=== PATIENT | male | born 1990 | race Caucasian/White ===

== ENCOUNTER 2017-04-23 01:01 | Inpatient (IN) ==
[2017-04-23] MEDS ORDERED: SODIUM CHLORIDE 1,000 ML IV STA ×2 (01:06→04:11)
[2017-04-23] MEDS ORDERED: DUONEB NEB STA (01:07)
[2017-04-23] MEDS ORDERED: XOPENEX 1.25 MG NEB STA (01:07)
[2017-04-23] MEDS ORDERED: SOLU-MEDROL 125 MG IVP STA (01:07)
[2017-04-23] MEDS ORDERED: ROCEPHIN 1 GM in SODIUM CHLORIDE 50 ML IV STA (01:08)
[2017-04-23] MEDS ORDERED: TORADOL IVP STA (01:08)
[2017-04-23 01:38] VITALS: BMI 35.6
[2017-04-23] MEDS ORDERED: ROCEPHIN ONE ×2 (02:04→20:20)
--- NOTE | 2017-04-23 03:41 | CT ---
EXAM: CT pulmonary angiogram. HISTORY: Cough. Chest pain. Evaluate for pulmonary embolism. PROCEDURE: After the intravenous injection of contrast a CT pulmonary angiogram was performed with c ontiguous axial CT images of the chest and multiplanar and 3-D reformats. FINDINGS: There is normal enhancement of the pulmonary arteries with no evidence of pulmonary embolis m. The heart is within normal limits in size. The thoracic aorta is within normal limits in diamete r. There are enlarged mediastinal and hilar lymph nodes measuring up to 1 cm in short axis. No infilt rate or consolidation. There is a 0.5 cm nodule in the left lower lobe. The bones and soft tissues are unremarkable. The adrenal glands and visualized portion of the liver are normal in appearance. Impression: No evidence of pulmonary embolism. Mediastinal and hilar lymphadenopathy as described. Recommend follow-up CT in [address] ability. 0.5 cm nodule in the left lower lobe. Recommend follow-up CT in 1 year to confirm stability.
--- NOTE | 2017-04-23 04:05 | ED.PDOC ---
General ED Provider: Dr. CRISTHIAN MAHER-ER Chief Complaint: Cough Stated Complaint: bacilio had cough wheezing and sob for a couple of days Time Seen by Physician: 00:30 Mode of Arrival: Walk-In Information Source: Patient Exam Limitations: No limitations Nursing and Triage Documentation Reviewed and Agree: Yes Reviewed sepsis parameters & appropriate labs ordered?: Yes System Inflammatory Response Syndrome: Not Applicable Sepsis Protocol: For patient's 13 years and over: Temp is 96.8 and below OR 101 and greater Pulse >90 BPM Resp >20/minute Acutely Altered Mental Status Are patient's symptoms suggestive of a new infection, such as: -Pneumonia -Skin, Soft Tissue -Endocarditis -UTI -Bone, Joint Infection -Implantable Device -Acute Abdominal Infection -Wound Infection -Meningitis -Blood Stream Catheter Infection -Unknown Respiratory Complaint Exam - Respiratory Complaint/Exam Onset/Duration: 3 days Symptoms Are: Still present Timing: Constant Initial Severity: Mild Current Severity: Moderate Location: Chest Character: Reports: Non-productive cough Aggravating: Reports: URI Alleviating: Reports: None Associated Signs and Symptoms: Reports: Dyspnea, Pleuritic chest pain, Wheezing , URI, Decreased oral intake. Denies: Rapid breathing, Fever, Chills, Chest pain, Hemoptysis, Dizziness, Calf pain, Calf swelling, Edema, Nasal congestion, Hoarseness, Sinus discomfort, Vomiting, Sore throat, Weight loss, Increased thirst, Increased appetite, Increased urination Related History: Reports: Similar episode History of Healthcare-Acquired Pneumonia: No Related Surgical History: Reports: None Status Asthmaticus Risk Factors: Reports: None Home Oxygen Use: No Recent Stress Test: No Recent Echo/LV Function: No Current Antibiotic Use: No Current Asthma Medication Use: Yes Respiratory Distress: Mild Inadequate Respiratory Effort: No Dysphagia Present: No Stridor Present: No JVD Present: No Accessory Muscle Use: No Retractions: Not Present Diminished Breath Sounds: No Prolonged Respiration: Expiratory phase Sinus Tenderness: None Grunting Respirations: No Kussmaul Respirations: No Differential Diagnoses: Asthma, Pneumonia, Bronchitis Non-Traumatic Chest Pain Syncope: EKG Performed Review of Systems - Review Of Systems Constitutional: Reports: No symptoms Eyes: Reports: No symptoms Ears, Nose, Mouth, Throat: Reports: No symptoms Respiratory: Reports: Cough, Wheezing Cardiac: Reports: Chest pain GI: Reports: No symptoms : Reports: No symptoms Musculoskeletal: Reports: No symptoms Skin: Reports: No symptoms Neurological: Reports: No symptoms Endocrine: Reports: No symptoms Hematologic/Lymphatic: Reports: No symptoms All Other Systems: Reviewed and Negative Past Medical History - Past Medical History Previously Healthy: Yes Endocrine: Reports: None Cardiovascular: Reports: None Respiratory: Reports: None Hematological: Reports: None Gastrointestinal: Reports: None Genitourinary: Reports: None Neuro/Psych: Reports: None Musculoskeletal: Reports: None Cancer: Reports: None Other Pertinent Past Medical History: Right leg surgery - Surgical History General Surgical History: Reports: Orthopedic (Right leg surgery) - Family History Family History: Reports: Unknown (mother NVD over a week ago no one else ill ? foodborne) - Social History Smoking Status: Never smoker Hx Substance Use: No Alcohol Screening: None Lives: With family - Immunizations Tetanus Shot up to Date: No Physical Exam - Physical Exam Appearance: Well-appearing, No pain distress, Well-nourished Eyes: KASANDRA, EOMI, Conjunctiva clear ENT: Ears normal, Nose normal, Oropharynx normal Neck: Supple Respiratory: Airway patent, Wheezes Cardiovascular: RRR, Pulses normal, No rub, No murmur GI/: Soft, Nontender, No masses, Bowel sounds normal, No Organomegaly Musculoskeletal: Normal strength Skin: Warm, Dry, Normal color Neurological: Sensation intact Psychiatric: Affect appropriate, Mood appropriate, Anxious Interpretation - Radiology Interpretation Radiology Interpretation By: Radiologist Radiology Results: Positive Exam Interpreted: CT Scan Physician Notification - Case Discussed Physician Notified: [email or web address] Time of Notification: 04:05 Critical Care Note - Critical Care Note Total Time (mins): 0 Course - Course Hematology/Chemistry: 04/23/17 01:50 04/23/17 01:50 Orders, Labs, Meds: Lab Review 04/23/17 04/23/17 04/23/17 01:06 01:50 01:50 WBC 10.97 H RBC 6.01 Hgb 16.9 Hct 49.4 MCV 82.2 MCH 28.1 MCHC 34.2 RDW Coeff of Nena 13.6 Plt Count 255 Immature Gran % (Auto) 0.5 Neut % (Auto) 67.7 Lymph % (Auto) 19.2 Loving % (Auto) 7.7 Eos % (Auto) 4.1 Baso % (Auto) 0.8 Immature Gran # (Auto) 0.1 Neut # 7.4 H Lymph # 2.1 Loving # 0.8 Eos # 0.5 Baso # 0.1 Puncture Site Lrad O2 Saturation 91.0 L ABG pH 7.412 ABG pCO2 37.4 ABG pO2 60.0 L ABG HCO3 23.8 ABG Total CO2 25 ABG Base Excess -1 Lalo Test + FiO2 % 21.0 Sodium 139 Potassium 3.9 Chloride 107 Carbon Dioxide 23 Anion Gap 12.9 BUN 15 Creatinine 1.04 Estimated GFR (MDRD) 86.00 BUN/Creatinine Ratio 14.42 Glucose 96 Calcium 9.5 Total Bilirubin 0.5 AST 17 ALT 16 Alkaline Phosphatase 84 Total Creatine Kinase 99 Troponin I < 0.0100 Total Protein 7.7 Albumin 3.9 Globulin 3.8 Albumin/Globulin Ratio 1.03 Influenza A (Rapid) Influenza B (Rapid) 04/23/17 02:40 WBC RBC Hgb Hct MCV MCH MCHC RDW Coeff of Nena Plt Count Immature Gran % (Auto) Neut % (Auto) Lymph % (Auto) Loving % (Auto) Eos % (Auto) Baso % (Auto) Immature Gran # (Auto) Neut # Lymph # Loving # Eos # Baso # Puncture Site O2 Saturation ABG pH ABG pCO2 ABG pO2 ABG HCO3 ABG Total CO2 ABG Base Excess Lalo Test FiO2 % Sodium Potassium Chloride Carbon Dioxide Anion Gap BUN Creatinine Estimated GFR (MDRD) BUN/Creatinine Ratio Glucose Calcium Total Bilirubin AST ALT Alkaline Phosphatase Total Creatine Kinase Troponin I Total Protein Albumin Globulin Albumin/Globulin Ratio Influenza A (Rapid) Negative Influenza B (Rapid) Negative Orders Category Date Time Status ABG DRAW REQUEST Stat CARDIO 04/23/17 01:06 Completed EKG-(ED ONLY) Stat CARDIO 04/23/17 01:06 Completed NEBULIZER TREATMENT Stat CARDIO 04/23/17 01:07 Completed NPO REMINDER: IMAGING ONCE CARE 04/23/17 01:09 Completed ED IV/MEDIPORT/POWERPORT .ONCE EMERGENCY 04/23/17 01:06 Active ABG Stat LAB 04/23/17 01:06 Completed CBC W/ AUTO DIFF Stat LAB 04/23/17 01:50 Completed COMPREHENSIVE METABOLIC PANEL Stat LAB 04/23/17 01:50 Completed CREATINE KINASE Stat LAB 04/23/17 01:50 Completed MOLECULAR GROUP A STREP Stat LAB 04/23/17 02:31 Results RAPID FLU A/B Stat LAB 04/23/17 02:40 Completed STREP SCREEN Stat LAB 04/23/17 02:31 Results TROPONIN I Stat LAB 04/23/17 01:50 Completed 0.9 % Sodium Chloride [Saline Flush] MEDS 04/23/17 01:06 Ordered 1 syr IVF PRN PRN Ceftriaxone Sodium [Rocephin] MEDS 04/23/17 02:04 Discontinued 1 gm .ROUTE .STK-MED ONE Ceftriaxone Sodium [Rocephin] 1 gm MEDS 04/23/17 01:08 Discontinued 0.9 % Sodium Chloride [Sodium Chloride] 50 ml IV ONCE Ipratropium/Albuterol Neb [Duoneb] MEDS 04/23/17 01:07 Discontinued 1 vial NEB ONCE STA Ketorolac Tromethamine [Toradol] MEDS 04/23/17 01:08 Discontinued 30 mg IVP ONCE STA Levalbuterol HCl [Xopenex 1.25 mg] MEDS 04/23/17 01:07 Discontinued 1 vial NEB ONCE STA Methylprednisolone Sod Succ/Pf [Solu-Medrol 125 mg] MEDS 04/23/17 01:07 Discontinued 125 mg IVP ONCE STA Sodium Chloride 0.9% [Sodium Chloride] 1,000 ml MEDS 04/23/17 01:06 Active IV 100 mls/hr CT CHEST PE PROTOCOL Stat RADS 04/23/17 01:08 Completed Medications Generic Name Dose Route Start Last Admin Trade Name Freq PRN Reason Stop Dose Admin Sodium Chloride 1,000 mls @ 100 mls/hr 04/23/17 01:06 04/23/17 01:59 Sodium Chloride IV 04/23/17 11:05 100 mls/hr .Q10H STA Administration Sodium Chloride 1 syr 04/23/17 01:06 04/23/17 02:39 Saline Flush IVF 1 syr PRN PRN Administration To flush IV Discontinued Medications Generic Name Dose Route Start Last Admin Trade Name Freq PRN Reason Stop Dose Admin Albuterol/Ipratropium 1 vial 04/23/17 01:07 04/23/17 02:35 Duoneb NEB 04/23/17 01:08 1 vial ONCE STA Administration Ceftriaxone Sodium 1 gm/ 50 mls @ 75 mls/hr 04/23/17 01:08 04/23/17 02:39 Sodium Chloride IV 04/23/17 01:47 75 mls/hr ONCE STA Administration Ketorolac Tromethamine 30 mg 04/23/17 01:08 04/23/17 02:39 Toradol IVP 04/23/17 01:09 30 mg ONCE STA Administration Levalbuterol HCl 1 vial 04/23/17 01:07 04/23/17 03:14 Xopenex 1.25 Mg NEB 04/23/17 01:08 1 vial ONCE STA Administration Methylprednisolone Sodium Succinate 125 mg 04/23/17 01:07 04/23/17 02:39 Solu-Medrol 125 Mg IVP 04/23/17 01:08 125 mg ONCE STA Administration Vital Signs: Temp Pulse Resp BP Pulse Ox 04/23/17 04:01 98.5 F 78 20 136/64 93 L 04/23/17 01:25 98.3 F 89 18 122/86 91 L Departure - Departure Time of Disposition: 04:05 Disposition: ADMITTED INPATIENT Discharge Problem: Acute respiratory failure Qualifiers: Respiratory failure complication: hypoxia Qualified Code(s): J96.01 - Acute respiratory failure with hypoxia Asthmatic bronchitis Qualifiers: Asthma severity: mild Asthma persistence: intermittent Asthma complication type : with acute exacerbation Qualified Code(s): J45.21 - Mild intermittent asthma with (acute) exacerbation Instructions: Asthma (ED) Condition: Good Pt referred to PMD for follow-up: Yes Allergies/Adverse Reactions: Allergies poison giselle extract Allergy (Severe, Unverified 03/31/15 16:06) severe rash, itchy cat dander Allergy (Mild, Unverified 03/31/15 16:05) itchy eyes, sneezing Home Medications: Ambulatory Orders Fluoxetine HCl [Prozac] 40 mg PO DAILY 06/07/16 Transfer Form Completed: No Disposition Discussed With: Patient, Family
[2017-04-23] MEDS ORDERED: TYLENOL PO PRN (04:06)
[2017-04-23] MEDS ORDERED: ALBUTEROL 0.042% NEB NEB PRN (04:08)
[2017-04-23] MEDS: XOPENEX 1.25 MG NEB SCH ×4 (06:00→23:58)
[2017-04-23] MEDS ORDERED: NON-FORMULARY MEDICATION (Fluoxetine Hcl [Prozac] 40 MG) PO SCH (09:00)
[2017-04-23] MEDS: PROZAC PO SCH (09:05)
[2017-04-23] MEDS: LOVENOX SUBCUT SCH (09:07)
[2017-04-23] MEDS: SOLU-MEDROL 40 MG IVP SCH ×3 (09:17→20:35)
[2017-04-23] MEDS: PHENERGAN WITH CODEINE 6.25/10 MG/5 ML PO SCH ×2 (13:53→20:36)
[2017-04-23] MEDS: ROCEPHIN 1 GM in SODIUM CHLORIDE 50 ML IV SCH (20:35)
[2017-04-24] MEDS: PHENERGAN WITH CODEINE 6.25/10 MG/5 ML PO SCH ×4 (01:44→20:04)
[2017-04-24] MEDS: XOPENEX 1.25 MG NEB SCH ×4 (05:05→23:55)
[2017-04-24] MEDS: SOLU-MEDROL 40 MG IVP SCH ×3 (08:23→20:05)
[2017-04-24] MEDS: PROZAC PO SCH (08:28)
[2017-04-24] MEDS: LOVENOX SUBCUT SCH (08:29)
[2017-04-24] MEDS: ROCEPHIN 1 GM in SODIUM CHLORIDE 50 ML IV SCH (20:04)
[2017-04-25] MEDS: PHENERGAN WITH CODEINE 6.25/10 MG/5 ML PO SCH ×2 (02:23→08:34)
[2017-04-25] MEDS: XOPENEX 1.25 MG NEB SCH ×2 (07:23→10:59)
[2017-04-25] MEDS: PROZAC PO SCH (08:33)
[2017-04-25] MEDS: LOVENOX SUBCUT SCH (08:34)
[2017-04-25] MEDS: SOLU-MEDROL 40 MG IVP SCH (09:05)
--- NOTE | 2017-04-25 09:47 | DI ---
EXAM: Chest two views HISTORY: Cough COMPARISON: None TECHNIQUE: Two views of the chest were performed FINDINGS: The lungs are clear. There is no pleural effusion or pneumothorax. The heart is normal i n size. The mediastinal contour is normal. There are no acute abnormalities of the bones. IMPRESSION: No acute cardiopulmonary process.
[2017-04-25 12:25] VITALS: BP 141/77; TEMP 97.3
--- NOTE | 2017-04-26 15:13 | PN ---
DATE OF SERVICE: 04/24/17 SUBJECTIVE: The patient was admitted with hypoxemia, asthmatic exacerbation. Still having cough and congestion. Some shortness of breath with exertion. REVIEW OF SYSTEMS: CONSTITUTIONAL: No fever, no chills. HEENT: Normal. ENDOCRINE: No weight gain, no weight loss. CVS: No angina symptoms. No CHF symptoms. No palpitations. No atypical chest pain for CAD. No shortness of breath. No PND, no orthopnea. RESPIRATORY: No cough, no hemoptysis. GI: No nausea, no vomiting. No abdominal pain. : No hematuria. No polyuria. MUSCULOSKELETAL:. No joint swelling. PSYCHIATRIC: Not anxious. No depression. No suicidal thoughts. No homicidal thoughts. SKIN: Intact. No rash. PHYSICAL EXAMINATION: V/S: Blood pressure 127/75, respiratory rate 17, heart rate 78, temperature 97.7 with saturation 92%. HEENT: Normocephalic, atraumatic. NECK: Supple. No JVD, no carotid bruit. No lymphadenopathy. LUNGS: Basilar lung crackles. Clear to auscultation. No rales or rhonchi. HEART: S1, S2 normal. No S3. No murmur, gallop or regurgitation. ABDOMEN: Soft, nontender. Bowel sounds active. No rigidity. No rebound or guarding. No CVA tenderness. EXTREMITIES: No clubbing, cyanosis or pedal edema. MUSCULOSKELETAL: No joint swelling. NEUROLOGIC: Awake, alert, oriented times three. No focal deficit. LYMPHATIC: No lymph nodes palpable. SKIN: Intact. LABS: WBC 26.94, hgb 15.5, hct 46.5, plt count 284, sodium 140, potassium 3.9, chloride 108, bicarb 23, BUN 12, creatinine 1.03, glucose 131. ASSESSMENT: 1. Asthma exacerbation secondary to the bronchitis 2. Leukocytosis probably from the steroids 3. Hypoxemia 4. Schizoaffective disorder 5. History of tonsillectomy PLAN: 1. Continue Rocephin, Phenergan, codeine 2. Lovenox for the DVT prophylaxis 3. DUO NEBS 4. Xopenex Q 6 hours 5. Solu-Medrol 40mg four times a day 6. IV fluids Will follow the patient in daily rounds. TIME SPENT: More than 30 minutes MTDD
--- NOTE | 2017-04-26 15:37 | HP ---
DATE OF SERVICE: 04/23/17 CHIEF COMPLAINT: Coughing and shortness of breath HISTORY OF PRESENT ILLNESS: This is a 26 year old male with a history of schizoaffective disorder been coughing and congested from almost a month and keeps getting worse. Having chest soreness, yellow to white phlegm. History of asthma and started having the shortness of breath. Came to the emergency room and seen by Dr. Hoffman. WBC 10.97, ABG's showed pH 7.412, pCO2 37.4, pO2 67. Chemistry was normal. Serology was normal. Because of the hypoxemia CT chest with IV contrast was done which did not show any embolism but enlarged lymph nodes were seen. At that time the patient was admitted to the hospital with the asthmatic exacerbation secondary to the bronchitis and hypoxemia. REVIEW OF SYSTEMS: CONSTITUTIONAL: No fever, no chills. Weakness. Tiredness. HEENT: Normal. ENDOCRINE: No weight gain; no weight loss. CVS: No chest pain. No PND, no orthopnea. Shortness of breath. No PND, no orthopnea. RESPIRATORY: Cough, Congestion. No hemoptysis. GI: No nausea, no vomiting. No abdominal pain. No melena. : No hematuria. No polyuria. MUSCULOSKELETAL: No joint swelling. PSYCHIATRIC: Not anxious. No depression. No suicidal thoughts. No homicidal thoughts. SKIN: Intact, no open lesions. PAST MEDICAL HISTORY: Asthma, mild persistent History of pneumonia Schizoaffective disorder Depression Substance use PAST SURGICAL HISTORY: Tonsillectomy PERSONAL HISTORY: The patient does smoke, no alcohol and no drugs; used to take drugs. Family is significant for the heart problems. MEDICATIONS: Prozac ProAir ALLERGIES: Poison giselle Cat dander PHYSICAL EXAMINATION: V/S: Blood pressure 122/86, respiratory rate 18, heart rate 89, temperature 98.3 with saturation 91%. HEENT: Atraumatic, normocephalic. No scleral icterus. Pallor positive. Mucosa dry. NECK: Supple. No JVD, no bruit. No lymphadenopathy. No thyromegaly. HEART: S1, S2 normal. No murmur. No cyanosis or clubbing. No ascites. LUNGS: Decreased and basilar crackles with mild expiratory wheeze. No rales or rhonchi. ABDOMEN: Soft, nontender. Bowel sounds are active. No CVA tenderness. No rigidity or guarding. EXTREMITIES: No cyanosis, clubbing or pedal edema. MUSCULOSKELETAL: Normal joints, no swelling. NEUROLOGIC: The patient is SKIN: Intact; no open lesions. LYMPHATIC: No lymph nodes palpable. LABS: WBC 10.97, hgb 10.9, hct 49.4, plt count 255, sodium 139. potassium 3.9, chloride 107, bicarb 23, BUN 15, creatinine 0.404. First set of cardiac enzymes is negative. Influenza Negative. ASSESSMENT: 1. Asthma exacerbation secondary to the bronchitis 2. Acute hypoxemic respiratory failure 3. Schizoaffective disorder PLAN: 1. Admit patient to the regular floor 2. CBC and CMP today and daily 3. Cardiac enzymes and Troponin 4. Rocephin 1 gram daily 5. Phenergan with codeine 6. Lovenox for the DVT prophylaxis 7. Prozac 8. DUO NEBS 9. Albuterol 10.Solu-Medrol TIME SPENT: MORE THAN 70 minutes MTDD
--- NOTE | 2017-05-16 13:21 | DS ---
DATE OF SERVICE: 04/25/17 FINAL DIAGNOSIS: 1. ASTHMATIC BRONCHITIS 2. HYPOXEMIA 3. RESPIRATORY INFECTION 4. DEPRESSION 5. SCHIZOAFFECTIVE DISORDER PLAN: 1. Discharge the patient home. 2. New medications: Keflex 500 mg twice a day for 7 days. Prednisone 10 mg twice a day for 7 days. Phenergan with Codeine. 3. Continue home medications of Albuterol, Prozac. 4. Diet: Regular diet. 5. Activity: As much as tolerated. DISEASE SPECIFIC EDUCATION: About the pneumonia, pneumonia vaccination was discussed and he verbalized understanding. Antibiotic use and diarrhea was discussed. HOSPITAL COURSE: Sp Ruiz is a 26 year old male who came to the emergency room with cough and congestion with shortness of breath. He did take outpatient antibiotic which did help him. ABG showed the pH of 7.4112, PCO2 37.4, PO2 60. White count 10.97, serology was negative. The patient was wheezing and short of breath so he was admitted to the hospital and started on the IV antibiotics and the breathing treatments. The patient was given Lovenox for the DVT prophylaxis. DuoNebs, Phenergan with codeine and Rocephin and Solu-Medrol 40 mg three times a day. With the given treatment, the patient was gradually feeling better, He was up and about walking. He was coughing today and congested. A chest x-ray was done, which was negative. Clinically the patient has improved a lot and the patient was discharged home today with antibiotics and steroids. Follow up in the clinic within 5-7 days. TIME SPENT: MORE THAN 65 MINUTES TODAY LANCE
== END 2017-04-25 12:55 | disposition home or self-care (01) | DRG 202 ==
LOC: ED 01:01 → MEDSURG A 04:16
PROVIDERS: ADMIT Emergency Medicine; ATTEND Emergency Medicine
DX: J45.21 Mild intermittent asthma with (acute) exacerbation (principal); J96.01 Acute respiratory failure with hypoxia; J98.8 Other specified respiratory disorders; R07.9 Chest pain, unspecified; R05 Cough; D72.829 Elevated white blood cell count, unspecified; F32.9 Major depressive disorder, single episode, unspecified; F25.9 Schizoaffective disorder, unspecified; Z72.0 Tobacco use
CPT/HCPCS: 36415; 80053; 82550; 82803; 84484; 85025; 87502; 87651; 87880; 93005; 93010; 94640; 96361; 96365; 96366; 96375; 99284

== ENCOUNTER 2017-04-27 10:55 | Emergency (ER) ==
[2017-04-27 10:56] VITALS: BMI 35.6
[2017-04-27 11:10] VITALS: BP 130/73; TEMP 99.1
--- NOTE | 2017-04-27 13:30 | ED.PDOC ---
General ED Provider: Dr. CRISTHIAN ROCHA Chief Complaint: Shortness of Air Stated Complaint: Shortness of breath with cough. States recently discharged from hospital for ashtma flare up. Over past few days breathing had become more difficult at times. Used his MDI at home on multiple times with eventual some relief. Cough non productive. No meds for neb at home. Time Seen by Physician: 13:30 Mode of Arrival: Walk-In Information Source: Patient Exam Limitations: No limitations Referred to ED by: Other Nursing and Triage Documentation Reviewed and Agree: Yes Reviewed sepsis parameters & appropriate labs ordered?: Yes System Inflammatory Response Syndrome: Not Applicable Sepsis Protocol: For patient's 13 years and over: Temp is 96.8 and below OR 101 and greater Pulse >90 BPM Resp >20/minute Acutely Altered Mental Status Are patient's symptoms suggestive of a new infection, such as: -Pneumonia -Skin, Soft Tissue -Endocarditis -UTI -Bone, Joint Infection -Implantable Device -Acute Abdominal Infection -Wound Infection -Meningitis -Blood Stream Catheter Infection -Unknown Review of Systems - Review Of Systems Constitutional: Reports: No symptoms Eyes: Reports: No symptoms Ears, Nose, Mouth, Throat: Reports: No symptoms Respiratory: Reports: Cough, Wheezing Cardiac: Reports: No symptoms GI: Reports: No symptoms : Reports: No symptoms Musculoskeletal: Reports: No symptoms Skin: Reports: No symptoms Neurological: Reports: No symptoms Endocrine: Reports: No symptoms Hematologic/Lymphatic: Reports: No symptoms All Other Systems: Reviewed and Negative Past Medical History - Past Medical History Previously Healthy: Yes Endocrine: Reports: None Cardiovascular: Reports: None Respiratory: Reports: None Hematological: Reports: None Gastrointestinal: Reports: None Genitourinary: Reports: None Neuro/Psych: Reports: None Musculoskeletal: Reports: None Cancer: Reports: None Other Pertinent Past Medical History: Right leg surgery - Surgical History General Surgical History: Reports: Orthopedic (Right leg surgery) - Family History Family History: Reports: Unknown (mother NVD over a week ago no one else ill ? foodborne) - Social History Smoking Status: Never smoker Hx Substance Use: No Alcohol Screening: None Physical Exam - Physical Exam Appearance: Well-appearing Eyes: KASANDRA, EOMI ENT: Ears normal Respiratory: Airway patent, Respirations nonlabored, Wheezes Cardiovascular: RRR GI/: Soft, Nontender Musculoskeletal: Normal strength, ROM intact, No edema Skin: Warm, Dry Neurological: Sensation intact Critical Care Note - Critical Care Note Total Time (mins): 0 Course - Course Hematology/Chemistry: 04/27/17 13:45 04/27/17 13:45 Orders, Labs, Meds: Lab Review 04/27/17 04/27/17 04/27/17 13:31 13:45 13:45 WBC 15.84 H D RBC 5.98 Hgb 16.7 Hct 49.0 MCV 81.9 MCH 27.9 MCHC 34.1 RDW Coeff of Nena 14.5 Plt Count 254 Immature Gran % (Auto) 1.6 Neut % (Auto) 75.0 Lymph % (Auto) 12.4 Cass % (Auto) 10.0 Eos % (Auto) 0.6 Baso % (Auto) 0.4 Immature Gran # (Auto) 0.3 Neut # 11.9 H Lymph # 2.0 Cass # 1.6 Eos # 0.1 Baso # 0.1 Puncture Site R radial O2 Saturation 97.0 ABG pH 7.469 H ABG pCO2 33.5 L ABG pO2 84.0 L ABG HCO3 24.3 ABG Total CO2 25 ABG Base Excess 1 Lalo Test + FiO2 % 21.0 Sodium 137 Potassium 3.9 Chloride 103 Carbon Dioxide 24 Anion Gap 13.9 BUN 17 Creatinine 1.18 H Estimated GFR (MDRD) 74.00 BUN/Creatinine Ratio 14.40 Glucose 118 H Calcium 9.0 Total Bilirubin 0.6 AST 20 ALT 18 Alkaline Phosphatase 71 Total Protein 7.7 Albumin 3.6 Globulin 4.1 Albumin/Globulin Ratio 0.88 Orders Category Date Time Status ABG DRAW REQUEST Stat CARDIO 04/27/17 13:31 Completed NEBULIZER TREATMENT Stat CARDIO 04/27/17 13:35 Completed ABG Stat LAB 04/27/17 13:31 Completed CBC W/ AUTO DIFF Stat LAB 04/27/17 13:45 Completed COMPREHENSIVE METABOLIC PANEL Stat LAB 04/27/17 13:45 Completed Albuterol Sulfate 0.083% Neb [Albuterol 0.083% Neb] MEDS 04/27/17 13:34 Discontinued 1 vial NEB ONCE STA CHEST, 2 VIEWS PA & LAT Stat RADS 04/27/17 13:32 Completed Medications Discontinued Medications Generic Name Dose Route Start Last Admin Trade Name Freq PRN Reason Stop Dose Admin Albuterol Sulfate 1 vial 04/27/17 13:34 04/27/17 13:45 Albuterol 0.083% Neb NEB 04/27/17 13:35 1 vial ONCE STA Administration Vital Signs: Temp Pulse Resp BP Pulse Ox 04/27/17 10:56 99.1 F 117 H 22 130/73 92 L Departure - Departure Time of Disposition: 14:45 Disposition: HOME SELF-CARE Discharge Problem: Asthma Instructions: Asthma (ED) Condition: Good Pt referred to PMD for follow-up: Yes (Seek care by PCP in [place]) Prescriptions: Albuterol Sulfate 0.083% Neb [Albuterol 0.083% Neb] 1 vial NEB RTQ6H #120 vial.neb Budesonide [Pulmicort] 0.5 mg IH BID #60 ampul.neb Allergies/Adverse Reactions: Allergies poison giselle extract Allergy (Severe, Verified 04/27/17 11:07) severe rash, itchy cat dander Allergy (Mild, Verified 04/27/17 11:07) itchy eyes, sneezing Home Medications: Ambulatory Orders Fluoxetine HCl [Prozac] 40 mg PO DAILY 06/07/16 Cephalexin [Keflex] 500 mg PO Q12HR #14 capsule 04/25/17 Codeine/Promethazine Syrup [Phenergan with Codeine 6.25/10 mg/5 ml] 5 ml PO Q12H 7 Days #70 ml 04/25/17 Prednisone 10 mg PO BIDWM #14 tablet 04/25/17 Albuterol Sulfate 0.083% Neb [Albuterol 0.083% Neb] 1 vial NEB RTQ6H #120 vial.neb 04/27/17 Budesonide [Pulmicort] 0.5 mg IH BID #60 ampul.neb 04/27/17
[2017-04-27] MEDS ORDERED: ALBUTEROL 0.083% NEB NEB STA (13:34)
--- NOTE | 2017-04-27 14:23 | DI ---
EXAM: Chest two views HISTORY: Shortness of breath and coughing COMPARISON: 04/25/2017 TECHNIQUE: Two views of the chest were performed FINDINGS: The lungs are clear. There is no pleural effusion or pneumothorax. The heart is normal i n size. The mediastinal contour is normal. There are no acute abnormalities of the bones. IMPRESSION: No acute cardiopulmonary process.
== END 2017-04-27 15:20 | disposition home or self-care (01) ==
LOC: ED 10:55
DX: J45.909 Unspecified asthma, uncomplicated (principal); R06.02 Shortness of breath; Z79.899 Other long term (current) drug therapy
CPT/HCPCS: 36415; 80053; 82803; 85025; 94640; 99283

== ENCOUNTER 2017-06-02 11:53 | Outpatient (CLI) ==
--- NOTE | 2017-06-02 13:51 | CT ---
EXAM: CT maxillofacial region without contrast History: Left-sided jaw pain. Technique: Multiplanar CT images through the maxillofacial region were obtained without the administ ration of IV contrast Findings: Orbits are intact. The visualized intracranial contents demonstrate no acute findings. N o acute fracture or dislocation. Surrounding soft tissues demonstrate no acute abnormalities. Tiny 5 mm mucous retention cyst or polyp within the right maxillary sinus. Paranasal sinuses are otherwis e clear. Mastoid air cells are clear. Nasal septum is bowed mildly to the right. Bilateral ostiome atal units are not occluded. Impression: 1. No acute osseous abnormality. 2. Tiny mucous retention cyst or polyp within the right maxillary sinus.
== END 2017-06-02 11:54 | disposition home or self-care (01) ==
LOC: RAD 11:53
PROVIDERS: ATTEND Emergency Medicine
DX: S03.4 Sprain of jaw (principal)

== ENCOUNTER 2018-01-16 21:49 | Emergency (ER) ==
[2018-01-16 22:03] VITALS: BP 133/85; TEMP 98.1; BMI 35.8
[2018-01-17] MEDS ORDERED: MOTRIN PO STA (00:12)
[2018-01-17] MEDS ORDERED: LIDOCAINE HCL 1% SDV IM STA (00:12)
[2018-01-17] MEDS ORDERED: ROCEPHIN IM STA (00:12)
--- NOTE | 2018-01-17 00:15 | ED.PDOC ---
General ED Provider: Dr. ALYSSA LEONARD Chief Complaint: Wound Check Stated Complaint: Left foot injury from a film washer 3 days ago. here for wound check. Time Seen by Physician: 00:13 Mode of Arrival: Walk-In Information Source: Patient Exam Limitations: No limitations Primary Care Provider: SOREN SRIVASTAVA Nursing and Triage Documentation Reviewed and Agree: Yes Does patient meet sepsis criteria?: No System Inflammatory Response Syndrome: Not Applicable Sepsis Protocol: For patient's 13 years and over: Temp is 96.8 and below OR 101 and greater Pulse >90 BPM Resp >20/minute Acutely Altered Mental Status Are patient's symptoms suggestive of a new infection, such as: -Pneumonia -Skin, Soft Tissue -Endocarditis -UTI -Bone, Joint Infection -Implantable Device -Acute Abdominal Infection -Wound Infection -Meningitis -Blood Stream Catheter Infection -Unknown Skin Complaint Exam - Laceration/Lower Ext. Complaint/Exam Location of Injury: Left, Foot Mechanism of Injury: Abrasion Onset/Duration: 3-4 days Symptoms Are: Still present Initial Severity: Severe Current Severity: Moderate Aggravating: Movement Associated Signs and Symptoms: Denies: Fever, Chills, Erythema, Numbness, Tingling Lower Extremity Picture: 1 - 2, 1 cm scabs healing with surround cellulitis. Differential Diagnoses: Abrasion Review of Systems - Review Of Systems Constitutional: Reports: No symptoms Eyes: Reports: No symptoms Ears, Nose, Mouth, Throat: Reports: No symptoms Respiratory: Reports: No symptoms Cardiac: Reports: No symptoms GI: Reports: No symptoms : Reports: No symptoms Musculoskeletal: Reports: Joint pain Skin: Reports: Lesions (left dorsum of foot scabes ), Rash (left foot ), Other Neurological: Reports: Anxiety Endocrine: Reports: No symptoms Hematologic/Lymphatic: Reports: No symptoms All Other Systems: Reviewed and Negative Past Medical History - Past Medical History Previously Healthy: Yes Endocrine: Reports: None Cardiovascular: Reports: None Respiratory: Reports: Asthma Hematological: Reports: None Gastrointestinal: Reports: GERD Genitourinary: Reports: None Neuro/Psych: Reports: Depression, Schizophrenia Musculoskeletal: Reports: None Cancer: Reports: None Other Pertinent Past Medical History: Right leg surgery - Surgical History General Surgical History: Reports: Cholecystectomy, Orthopedic (Right leg surgery), Hernia Repair - Family History Family History: Reports: Unknown (mother NVD over a week ago no one else ill ? foodborne) - Social History Smoking Status: Never smoker Hx Substance Use: No Alcohol Screening: None - Immunizations Tetanus Shot up to Date: (UNKNOWN) Physical Exam - Physical Exam Appearance: Well-appearing, No pain distress, Well-nourished Eyes: KASANDRA, EOMI, Conjunctiva clear ENT: Ears normal, Nose normal, Oropharynx normal Respiratory: Airway patent, Breath sounds clear, Breath sounds equal, Respirations nonlabored Cardiovascular: RRR, Pulses normal, No rub, No murmur GI/: Soft, Nontender, No masses, Bowel sounds normal, No Organomegaly Musculoskeletal: Normal strength, ROM intact, No edema, No calf tenderness Skin: Warm, Dry Neurological: Sensation intact, Motor intact, Reflexes intact, Cranial nerves intact, Alert, Oriented Psychiatric: Affect appropriate, Mood appropriate Critical Care Note - Critical Care Note Total Time (mins): 0 Course - Course Orders, Labs, Meds: Orders Category Date Time Status Ceftriaxone Sodium [Rocephin] MEDS 01/17/18 00:12 Discontinued 1 gm IM ONCE STA Ibuprofen [Motrin] MEDS 01/17/18 00:12 Discontinued 800 mg PO ONCE STA Lidocaine HCl/Pf [Lidocaine HCl 1% Sdv] MEDS 01/17/18 00:12 Discontinued 2.1 ml IM ONCE STA Medications Discontinued Medications Generic Name Dose Route Start Last Admin Trade Name Matt PRN Reason Stop Dose Admin Ceftriaxone Sodium 1 gm 01/17/18 00:12 01/17/18 00:41 Rocephin IM 01/17/18 00:13 1 gm ONCE STA Administration Ibuprofen 800 mg 01/17/18 00:12 01/17/18 00:39 Motrin PO 01/17/18 00:13 800 mg ONCE STA Administration Lidocaine HCl 2.1 ml 01/17/18 00:12 01/17/18 00:41 Lidocaine Hcl 1% Sdv IM 01/17/18 00:13 2.1 ml ONCE STA Administration Vital Signs: Temp Pulse Resp BP Pulse Ox 01/16/18 21:51 98.1 F 82 20 133/85 97 Departure - Departure Time of Disposition: 00:18 Disposition: HOME SELF-CARE Discharge Problem: Cellulitis Qualifiers: Site of cellulitis: extremity Site of cellulitis of extremity: lower extremity Laterality: left Qualified Code(s): L03.116 - Cellulitis of left lower limb Instructions: Cellulitis (ED) Condition: Stable Pt referred to PMD for follow-up: Yes IPMP verified?: No Additional Instructions: Take Medication as needed for infection Take pain medications as needed for pain Follow up with PCP in 3 days Prescriptions: Cephalexin [Keflex] 500 mg PO Q8HR #30 capsule Ibuprofen [Motrin] 600 mg PO Q6H PRN #30 tablet PRN Reason: Analgesia Allergies/Adverse Reactions: Allergies poison giselle extract Allergy (Severe, Verified 01/16/18 22:02) severe rash, itchy cat dander Allergy (Mild, Verified 01/16/18 22:02) itchy eyes, sneezing Home Medications: Ambulatory Orders Fluoxetine HCl [Prozac] 40 mg PO DAILY 06/07/16 Albuterol Sulfate 0.083% Neb [Albuterol 0.083% Neb] 1 vial NEB RTQ6H PRN Albuterol Sulfate [Proair Hfa] 2 puff IH Q4H PRN 01/16/18 Lurasidone HCl [Latuda] 60 mg PO DAILY 01/16/18 Cephalexin [Keflex] 500 mg PO Q8HR #30 capsule 01/17/18 Ibuprofen [Motrin] 600 mg PO Q6H PRN #30 tablet 01/17/18 Disposition Discussed With: Patient
== END 2018-01-17 01:15 | disposition home or self-care (01) ==
LOC: ED 21:49
DX: L03.116 Cellulitis of left lower limb (principal)
CPT/HCPCS: 96372; 99282

== ENCOUNTER 2018-02-22 14:33 | Outpatient (CLI) | payer OTHER | END 2018-02-22 14:34 | disposition home or self-care (01) | LOC: AMBL 14:33 | PROVIDERS: ATTEND Emergency Medicine | DX: R45.851 Suicidal ideations (principal) ==

== ENCOUNTER 2018-07-31 23:29 | Emergency (ER) ==
[2018-07-31 23:40] VITALS: BP 128/87; TEMP 99.2; BMI 35.3
[2018-08-01] MEDS ORDERED: TETRACAINE 0.5% UNIT-DOSE OP STA (00:08)
[2018-08-01] MEDS ORDERED: FUL-GLO OP STA (00:10)
[2018-08-01] MEDS ORDERED: EYE-STREAM OP STA (00:13)
--- NOTE | 2018-08-01 00:22 | ED.PDOC ---
General ED Provider: Dr. ALYSSA LEONARD Chief Complaint: Eye Problem Stated Complaint: Patient was seen in the clinic yesterday diagnosed with conjunctivities give antibiotic drips which he has been using but states has not helped. Time Seen by Physician: 00:05 Mode of Arrival: Walk-In Information Source: Patient Primary Care Provider: KAREN RUDD Nursing and Triage Documentation Reviewed and Agree: Yes Does patient meet sepsis criteria?: No System Inflammatory Response Syndrome: Not Applicable Sepsis Protocol: For patient's 13 years and over: Temp is 96.8 and below OR 101 and greater Pulse >90 BPM Resp >20/minute Acutely Altered Mental Status Are patient's symptoms suggestive of a new infection, such as: -Pneumonia -Skin, Soft Tissue -Endocarditis -UTI -Bone, Joint Infection -Implantable Device -Acute Abdominal Infection -Wound Infection -Meningitis -Blood Stream Catheter Infection -Unknown Review of Systems - Review Of Systems Constitutional: Reports: No symptoms Eyes: Reports: Drainage (cleat ), Pain, Photophobia Ears, Nose, Mouth, Throat: Reports: No symptoms Respiratory: Reports: No symptoms Cardiac: Reports: No symptoms GI: Reports: No symptoms : Reports: No symptoms Musculoskeletal: Reports: No symptoms Skin: Reports: No symptoms Neurological: Reports: Anxiety Endocrine: Reports: No symptoms Hematologic/Lymphatic: Reports: No symptoms All Other Systems: Reviewed and Negative Past Medical History - Past Medical History Previously Healthy: Yes Endocrine: Reports: None Cardiovascular: Reports: None Respiratory: Reports: Asthma Hematological: Reports: None Gastrointestinal: Reports: GERD Genitourinary: Reports: None Neuro/Psych: Reports: Depression, Schizophrenia Musculoskeletal: Reports: None Cancer: Reports: None Other Pertinent Past Medical History: Right leg surgery - Surgical History General Surgical History: Reports: Cholecystectomy, Orthopedic (Right leg surgery), Hernia Repair - Family History Family History: Reports: Unknown (mother NVD over a week ago no one else ill ? foodborne) - Social History Smoking Status: Never smoker Hx Substance Use: No Alcohol Screening: None - Immunizations Tetanus Shot up to Date: Yes Physical Exam - Physical Exam Appearance: Ill-appearing, Obese Ill-appearing: Mild Pain Distress: Moderate Eyes: KASANDRA, EOMI, Conjunctiva inflammed (bilatearlly ) Neck: Supple Respiratory: Respirations nonlabored Neurological: Alert, Oriented Psychiatric: Anxious Critical Care Note - Critical Care Note Total Time (mins): 0 Course - Course Orders, Labs, Meds: Orders Category Date Time Status Balanced Salt Solution [Eye-Stream] MEDS 08/01/18 00:13 Discontinued 1 bottle OP ONCE STA Fluorescein Sodium [Ful-Leela] MEDS 08/01/18 00:10 Stat 1 strip OP ONCE STA Tetracaine HCl/Pf [Tetracaine 0.5% Unit-Dose] MEDS 08/01/18 00:08 Discontinued 2 drop OP ONCE STA Medications Discontinued Medications Generic Name Dose Route Start Last Admin Trade Name Matt PRN Reason Stop Dose Admin Eye Irrigation Solution 1 bottle 08/01/18 00:13 Eye-Stream OP 08/01/18 00:14 ONCE STA Fluorescein Sodium 1 strip 08/01/18 00:10 Ful-Leela OP 08/01/18 00:11 ONCE STA Tetracaine HCl 2 drop 08/01/18 00:08 Tetracaine 0.5% Unit-Dose OP 08/01/18 00:09 ONCE STA Vital Signs: Temp Pulse Resp BP Pulse Ox 07/31/18 23:29 99.2 F 75 20 128/87 94 L Departure - Departure Time of Disposition: 00:20 Disposition: HOME SELF-CARE Discharge Problem: Conjunctivitis Qualifiers: Conjunctivitis type: acute Acute conjunctivitis type: unspecified Laterality: bilateral Qualified Code(s): H10.33 - Unspecified acute conjunctivitis, bilateral Instructions: Conjunctivitis (ED) Condition: Stable Pt referred to PMD for follow-up: Yes IPMP verified?: No Additional Instructions: take Motrin or Tylenol as needed for pain continue antibiotics drips Follow up with the eye clinic tomorrow Allergies/Adverse Reactions: Allergies poison giselle extract Allergy (Severe, Verified 07/31/18 23:39) severe rash, itchy cat dander Allergy (Mild, Verified 07/31/18 23:39) itchy eyes, sneezing Home Medications: Ambulatory Orders 1 [Unobtainable] 07/31/18 Disposition Discussed With: Patient, Family
[2018-08-01] MEDS ORDERED: MOTRIN PO STA (00:23)
== END 2018-08-01 00:30 | disposition home or self-care (01) ==
LOC: ED 23:29
DX: H10.33 Unspecified acute conjunctivitis, bilateral (principal)
CPT/HCPCS: 96372; 99282; 99283

== ENCOUNTER 2018-08-01 22:12 | Emergency (ER) ==
[2018-08-01 22:22] VITALS: BP 136/88; TEMP 100; BMI 34.7
--- NOTE | 2018-08-01 22:35 | ED.PDOC ---
General ED Provider: Dr. CRISTHIAN MAHER-ER Chief Complaint: Eye Problem Stated Complaint: both eye hurt and are draining--saw dr helm this am aND given drops for his eyes Time Seen by Physician: 22:15 Mode of Arrival: Walk-In Information Source: Patient, Family Exam Limitations: No limitations Primary Care Provider: KAREN RUDD Nursing and Triage Documentation Reviewed and Agree: Yes Does patient meet sepsis criteria?: No System Inflammatory Response Syndrome: Not Applicable Sepsis Protocol: For patient's 13 years and over: Temp is 96.8 and below OR 101 and greater Pulse >90 BPM Resp >20/minute Acutely Altered Mental Status Are patient's symptoms suggestive of a new infection, such as: -Pneumonia -Skin, Soft Tissue -Endocarditis -UTI -Bone, Joint Infection -Implantable Device -Acute Abdominal Infection -Wound Infection -Meningitis -Blood Stream Catheter Infection -Unknown EENT Complaint Exam - Eye Complaint/Exam Onset/Duration: 2 days Symptoms Are: Still present Timing: Constant Initial Severity: Mild Current Severity: Mild Location: Bilateral Character: Reports: Dull, Throbbing Alleviating: Reports: Eye drops Associated Signs and Symptoms: Reports: Photophobia, Purulent drainage, Vision impairment Globe Rupture Risk Factors: None Acute Glaucoma Risk Factors: Eye Inflammation Lid Findings: Normal Conjunctival Findings: Red, Exudate Fundi: Normal Slit Lamp Used: No Differential Diagnoses: Conjunctivitis Review of Systems - Review Of Systems Constitutional: Reports: No symptoms Eyes: Reports: Vision change, Drainage, Inflammation, Pain, Photophobia Ears, Nose, Mouth, Throat: Reports: No symptoms Respiratory: Reports: No symptoms Cardiac: Reports: No symptoms GI: Reports: No symptoms : Reports: No symptoms Musculoskeletal: Reports: No symptoms Skin: Reports: No symptoms Neurological: Reports: No symptoms Endocrine: Reports: No symptoms Hematologic/Lymphatic: Reports: No symptoms All Other Systems: Reviewed and Negative Past Medical History - Past Medical History Previously Healthy: Yes Endocrine: Reports: None Cardiovascular: Reports: None Respiratory: Reports: Asthma Hematological: Reports: None Gastrointestinal: Reports: GERD Genitourinary: Reports: None Neuro/Psych: Reports: Depression, Schizophrenia Musculoskeletal: Reports: None Cancer: Reports: None Other Pertinent Past Medical History: Right leg surgery - Surgical History General Surgical History: Reports: Cholecystectomy, Orthopedic (Right leg surgery), Hernia Repair - Family History Family History: Reports: Unknown (mother NVD over a week ago no one else ill ? foodborne) - Social History Smoking Status: Never smoker Hx Substance Use: No Alcohol Screening: None - Immunizations Tetanus Shot up to Date: (UNKNOWN) Physical Exam - Physical Exam Appearance: Well-appearing, No pain distress, Well-nourished Eyes: KASANDRA, EOMI, Conjunctiva inflammed ENT: Ears normal Neck: Supple Respiratory: Airway patent, Breath sounds clear, Breath sounds equal, Respirations nonlabored Cardiovascular: RRR, Pulses normal, No rub, No murmur GI/: Soft, Nontender, No masses, Bowel sounds normal, No Organomegaly Musculoskeletal: Normal strength, ROM intact, No edema, No calf tenderness Skin: Warm, Dry, Normal color Neurological: Sensation intact, Motor intact, Reflexes intact, Cranial nerves intact, Alert, Oriented Psychiatric: Affect appropriate, Mood appropriate, Anxious Physician Notification - Case Discussed Physician Notified: dr helm--d/w and okjoyc[facility] pain control Time of Notification: 23:41 Critical Care Note - Critical Care Note Total Time (mins): 0 Course - Course Vital Signs: Temp Pulse Resp BP Pulse Ox 08/01/18 22:13 100 F H 70 20 136/88 96 Departure - Departure Time of Disposition: 23:45 Disposition: HOME SELF-CARE Discharge Problem: Conjunctivitis Qualifiers: Conjunctivitis type: unspecified Laterality: bilateral Qualified Code(s): H10.9 - Unspecified conjunctivitis Instructions: Conjunctivitis (ED) Condition: Good Pt referred to PMD for follow-up: Yes IPMP verified?: No Additional Instructions: norco 7.5mg q 4hrs prn pain #10---continue other eye meds---f/u with dr helm Allergies/Adverse Reactions: Allergies poison giselle extract Allergy (Severe, Verified 08/01/18 22:22) severe rash, itchy cat dander Allergy (Mild, Verified 08/01/18 22:22) itchy eyes, sneezing Home Medications: Ambulatory Orders 1 [Unobtainable] 07/31/18 Disposition Discussed With: Patient, Family
[2018-08-01] MEDS ORDERED: MORPHINE 2 MG/ML SYRINGE IM STA (23:43)
[2018-08-01] MEDS ORDERED: ZOFRAN 4 MG/2 ML IM STA (23:44)
== END 2018-08-02 00:15 | disposition home or self-care (01) ==
LOC: ED 22:12
DX: H10.9 Unspecified conjunctivitis (principal)
CPT/HCPCS: 96372; 99282